=== PATIENT | female | born 1955 | race Caucasian/White ===

== ENCOUNTER 2016-10-18 17:04 | Inpatient (IN) | payer OTHER ==
[2016-10-18 18:08] VITALS: BMI 23.0
--- NOTE | 2016-10-18 19:29 | HP ---
CIWA Score - CIWA Score Nausea/Vomitin-Mild Nausea/No Vomiting Muscle Tremors: 4-Moderate,w/Arms Extend Anxiety: 4-Mod. Anxious/Guarded Agitation: 4-Moderately Restless Paroxysmal Sweats: 1-Minimal Palms Moist Orientation: 0-Oriented Tacttile Disturbances: 0-None Auditory Disturbances: 0-None Visual Disturbances: 0-None Headache: 2-Mild CIWA-Ar Total Score: 16 Admission ROS BHS - HPI Chief Complaint: withdrawal sx Allergies/Adverse Reactions: Allergies Allergy/AdvReac Type Severity Reaction Status Date / Time No Known Allergies Allergy Verified 10/18/16 19:57 History of Present Illness: 61 years old female with long history of alcohol dependence has diabetes ii depression neuropathy gerd, patient has in family began to heavy alcohol drinking 7 months ago admitted to detox Exam Limitations: No Limitations - Ebola screening Have you traveled outside of the country in the last 21 days: No (N) Have you had contact with anyone from an Ebola affected area: No Have you been sick,other than usual withdrawal symptoms: No Do you have a fever: No - Review of Systems Constitutional: Chills, Loss of Appetite, Changes in sleep, Unintentional Wgt. Loss EENT: reports: No Symptoms Reported Respiratory: reports: No Symptoms reported Cardiac: reports: Palpitations GI: reports: Nausea, Poor Appetite, Poor Fluid Intake, Indigestion, Abdominal cramping : reports: No Symptoms Reported Musculoskeletal: reports: Muscle Pain Integumentary: reports: Other (right 5th toe) Neuro: reports: Tremors Endocrine: reports: No Symptoms Reported Hematology: reports: No Symptoms Reported Psychiatric: reports: Judgement Intact, Orientated x3, Depressed Other Systems: Reviewed and Negative Patient History - Patient Medical History Hx Anemia: No Hx Asthma: No Hx Chronic Obstructive Pulmonary Disease (COPD): No Hx Cancer: No Hx Cardiac Disorders: No Hx Congestive Heart Failure: No Hx Hypertension: No Hx Hypercholesterolemia: No Hx Pacemaker: No HX Cerebrovascular Accident: No Hx Seizures: No Hx Dementia: No Hx Diabetes: Yes Hx Gastrointestinal Disorders: Yes (GERD) Hx Liver Disease: No Hx Genitourinary Disorders: No Hx Sexually Transmitted Disorders: No Hx Renal Disease (ESRD): No Hx Thyroid Disease: No Hx Human Immunodeficiency Virus (HIV): No Hx Hepatitis C: No Hx Depression: Yes Hx Suicide Attempt: No Hx Bipolar Disorder: No Hx Schizophrenia: No - Patient Surgical History Past Surgical History: Yes Hx Neurologic Surgery: No Hx Cataract Extraction: No Hx Cardiac Surgery: No Hx Lung Surgery: No Hx Breast Surgery: No Hx Breast Biopsy: No Hx Abdominal Surgery: No Hx Appendectomy: No Hx Cholecystectomy: No Hx Genitourinary Surgery: No Hx Section: No Hx Orthopedic Surgery: No Hx Hysterectomy: No Other Surgical History: Throat surgery (do not remember the name) Anesthesia Reaction: No - PPD History Previous Implant?: Yes Documented Results: Negative w/proof Implanted On Prior [facility] Admission?: Yes Date: 07/28/16 Results: 0mm PPD to be Administered?: No - Reproductive History Last Menstrual Period: 09/27/85 - Smoking Cessation Smoking history: Never smoked Have you smoked in the past 12 months: No Hx Chewing Tobacco Use: No Initiated information on smoking cessation: No - Substance & Tx. History Hx Alcohol Use: Yes Hx Substance Use: No Substance Use Type: Alcohol Hx Substance Use Treatment: Yes - Substances Abused Alcohol Route: Oral Frequency: Daily Amount used: 40 oz x 5 beer + pint volka Age of first use: 59 Date of Last Use: 10/18/16 Family Disease History - Family Disease History Family History: Denies Admission Physical Exam BHS - Vital Signs Vital Signs: Vital Signs - 24 hr 10/18/16 18:06 Temperature 97.3 F L Pulse Rate 103 H Respiratory 18 Rate Blood Pressure 112/70 - Physical General Appearance: Yes: Appropriately Dressed, Moderate Distress, Alcohol on Breath, Thin, Tremorous, Irritable, Sweating, Anxious HEENTM: Yes: Hearing grossly Normal, Normal ENT Inspection, Normocephalic, Normal Voice Respiratory: Yes: Chest Non-Tender, Lungs Clear, Normal Breath Sounds, No Respiratory Distress, No Accessory Muscle Use Neck: Yes: Supple, Trachea in good position Breast: Yes: Breasts Symetrical Cardiology: Yes: Regular Rhythm, S1, S2, Tachycardia Abdominal: Yes: Non Tender, Soft Genitourinary: Yes: Within Normal Limits Back: Yes: Normal Inspection Musculoskeletal: Yes: full range of Motion, Gait Steady Extremities: Yes: Normal Inspection, Normal Range of Motion, Non-Tender, Tremors Neurological: Yes: Alert, Motor Strength 5/5, Normal Response, Numbness ( diabetes neuropathy), Depressed Affect Integumentary: Yes: Warm, Moist Lymphatic: Yes: Within Normal Limits - Diagnostic (1) Acid reflux Current Visit: Yes Status: Acute Qualifiers: Esophagitis presence: without esophagitis (2) Alcohol dependence with uncomplicated withdrawal Current Visit: Yes Status: Acute (3) Diabetes mellitus type II, controlled Current Visit: Yes Status: Acute Qualifiers: Diabetes mellitus complication status: with neurologic complications Diabetes mellitus complication detail: with other neurological complication Diabetes mellitus extermination supervisor insulin use: without prison use Qualified Code(s): E11.49 - Type 2 diabetes mellitus with other diabetic neurological complication (4) Weight loss Current Visit: Yes Status: Acute (5) Depression (emotion) Current Visit: Yes Status: Suspected Qualifiers: Depression Type: dysthymia Qualified Code(s): F34.1 - Dysthymic disorder Cleared for Admission S - Detox or Rehab [facility] Level of Care: Medically Managed Detox Regimen/Protocol: Librium [facility] Breath Alcohol Content Breath Alcohol Content: 0.022 Urine Pregancy Test - Result Urine Test Results: Negative- NO Line Present Urine Drug Screen - Results Drug Screen Negative: Yes
[2016-10-18] MEDS ORDERED: MAG HYDROX/AL HYDROX/SIMETH 30 ML UNIT-DOSE CUP PO PRN (19:30)
[2016-10-18] MEDS ORDERED: guaiFENesin/D-METHORPHAN HB 10 ML UNIT-DOSE CUPS PO PRN (19:30)
[2016-10-18] MEDS ORDERED: chlordiazePOXIDE HCL 25 MG CAPSULE PO ONE (19:30)
[2016-10-18] MEDS ORDERED: ACETAMINOPHEN 325 MG TABLET (FP) PO PRN (19:30)
[2016-10-18] MEDS ORDERED: MAGNESIUM CITRATE 300 ML BOTTLE PO PRN (19:30)
[2016-10-18] MEDS ORDERED: LOPERAMIDE HCL 2 MG CAPSULE PO PRN (19:30)
[2016-10-18] MEDS ORDERED: diphenhydrAMINE HCL 50 MG CAPSULE PO PRN (19:30)
[2016-10-18] MEDS ORDERED: P-EPHED 60MG/TRIPROLIDI 2.5MG TABLET PO PRN (19:30)
[2016-10-18] MEDS ORDERED: MENTHOL/PHENOL 1 EACH UD MM PRN (19:30)
[2016-10-18] MEDS ORDERED: IBUPROFEN 400 MG TABLET (FP) PO PRN (19:30)
[2016-10-18] MEDS ORDERED: hydrOXYzine PAMOATE 50 MG CAPSULE (FP) PO PRN (19:30)
[2016-10-18] MEDS ORDERED: MAGNESIUM HYDROX 2400MG/30ML ORAL SUSPENSION 30 ML CUP PO PRN (19:30)
[2016-10-18] MEDS: chlordiazePOXIDE HCL 25 MG CAPSULE PO PRN (20:28)
[2016-10-18] MEDS: chlordiazePOXIDE HCL 25 MG CAPSULE PO SCH (22:18)
[2016-10-18] MEDS: GABAPENTIN 300 MG CAPSULE (FP) PO SCH (22:18)
[2016-10-18] MEDS: THIAMINE HCL 100 MG TABLET (FP) PO SCH (22:18)
[2016-10-18] MEDS: RANITIDINE HCL 150 MG TABLET (FP) PO SCH (22:18)
[2016-10-18 22:32] LABS: URINE APPEARANCE CLEAR; URINE BILIRUBIN NEGATIVE (NEGATIVE); URINE BLOOD NEGATIVE (NEGATIVE); URINE COLOR STRAW; URINE GLUCOSE (UA) 3+ (NEGATIVE); URINE KETONE NEGATIVE (NEGATIVE); URINE LEUK ESTERASE NEGATIVE (NEGATIVE); URINE NITRITE NEGATIVE (NEGATIVE); URINE PROTEIN NEGATIVE (NEGATIVE); URINE UROBILINOGEN NEGATIVE E.U./dl (0.2-1.0)
[2016-10-19] MEDS: GABAPENTIN 300 MG CAPSULE (FP) PO SCH (05:15)
[2016-10-19] MEDS: chlordiazePOXIDE HCL 25 MG CAPSULE PO SCH ×4 (05:15→22:16)
--- NOTE | 2016-10-19 09:51 | CONSULT ---
[facility] Psychiatric Consult - Data Date of interview: 10/19/16 Admission source: [facility] Identifying data: This is 61 years old male with history of psychiatric hospitalization intoxicated with Alcohol and Nicotine, history of MDD as well Substance Abuse History: - Smoking Cessation. Smoking history: Never smoked. Have you smoked in the past 12 months: No. Hx Chewing Tobacco Use: No. Initiated information on smoking cessation: No. - Substance & Tx. History. Hx Alcohol Use: Yes. Hx Substance Use: No. Substance Use Type: Alcohol. Hx Substance Use Treatment: Yes. - Substances Abused. Alcohol. Route: Oral. Frequency: Daily. Amount used: 40 oz x 5 beer + pint volka. Age of first use: 59. Date of Last Use: 10/18/16 Medical History: Patient reports GERD, DM-2, Weight loss, Hyperlipidemia Psychiatric History: Patient reprots histoey of MDD, reports currently taking: Trazodone 50mg po qhs. Gabapentine 100mg po bid. Patient reports most recent psychiatric admission on 2015 at [facility] [place] after depressive episode. Physical/Sexual Abuse/Trauma History: Denies Additional Comment: Trazodone 50mg po qhs. Gabapentine 100mg po bid Mental Status Exam - Mental Status Exam Alert and Oriented to: Person Cognitive Function: Fair Patient Appearance: Unkempt Mood: Sad Affect: Flat Patient Behavior: Sedated Speech Pattern: Delayed Voice Loudness: Mildly Soft/Quiet Thought Process: Circumstantial Thought Disorder: Being Controlled Hallucinations: Denies Suicidal Ideation: Denies Homicidal Ideation: Denies Insight/Judgement: Fair Sleep: Difficulty falling asleep Appetite: Weight loss Muscle strength/Tone: Mild Hypotonicity Gait/Station: Shuffling Additional Comments: Trazodone 50mg po qhs. Gabapentine 100mg po bid Psychiatric Findings - Problem List ([place] 1, 2,3) (1) Alcohol dependence with uncomplicated withdrawal Current Visit: Yes Status: Acute (2) MDD (recurrent major depressive disorder) in remission Current Visit: Yes Status: Acute (3) Depression (emotion) Current Visit: Yes Status: Suspected Qualifiers: Depression Type: dysthymia Qualified Code(s): F34.1 - Dysthymic disorder (4) Alcohol dependence Current Visit: No Status: Chronic (5) Steroid-induced depression Current Visit: Yes Status: Acute - Initial Treatment Plan Initial Treatment Plan: Trazodone 50mg po qhs. Gabapentine 100mg po bid
[2016-10-19] MEDS ORDERED: GABAPENTIN 100 MG CAPSULE (FP) PO SCH (10:00)
[2016-10-19] MEDS: RANITIDINE HCL 150 MG TABLET (FP) PO SCH (10:22)
[2016-10-19] MEDS: PRENATAL VITAMINS W/ FOLIC ACID TABLET (FP) PO SCH (10:22)
[2016-10-19] MEDS: chlordiazePOXIDE HCL 25 MG CAPSULE PO PRN (10:22)
[2016-10-19] MEDS: GABAPENTIN 100 MG CAPSULE (FP) PO SCH ×2 (10:25→22:16)
[2016-10-19] MEDS: metFORMIN HCL 500 MG TABLET (FP) PO SCH ×2 (10:26→17:17)
[2016-10-19 10:36] LABS: MCH 28.4 pg (25.7-33.7); MCHC 33.3 g/dl (32.0-36.0); MEAN CELL VOLUME 85.3 fl (80-96); MEAN PLT VOLUME 8.7 fl (7.5-11.1); PLATELET COUNT 207 K/MM3 (134-434); RDW 12.3 % (11.6-15.6); WHITE BLOOD COUNT 5.8 K/mm3 (4.0-10.0)
--- NOTE | 2016-10-19 10:58 | PN ---
S CIWA - CIWA Score Nausea/Vomitin-No Nausea/No Vomiting Muscle Tremors: 4-Moderate,w/Arms Extend Anxiety: 3 Agitation: 4-Moderately Restless Paroxysmal Sweats: 3 Orientation: 0-Oriented Tacttile Disturbances: 0-None Auditory Disturbances: 0-None Visual Disturbances: 0-None Headache: 0-None Present CIWA-Ar Total Score: 14 BHS Progress Note (SOAP) Subjective: sweats shakes interrupted sleep agitation Objective: 10/19/16 10:58 Vital Signs Temperature 96.8 F L 10/19/16 09:40 Pulse Rate 102 H 10/19/16 09:40 Respiratory Rate 18 10/19/16 09:40 Blood Pressure 105/66 10/19/16 09:40 O2 Sat by Pulse Oximetry (%) Laboratory Tests 10/18/16 10/19/16 10/19/16 22:00 06:19 07:00 WBC 5.8 D RBC 4.19 Hgb 11.9 D Hct 35.7 MCV 85.3 MCHC 33.3 RDW 12.3 Plt Count 207 MPV 8.7 Sodium Potassium Chloride POC Glucometer 160 Urine Color Straw Urine Appearance Clear Urine pH 5.0 Ur Specific [place] 1.010 Urine Protein Negative Urine Glucose (UA) 3+ H Urine Ketones Negative Urine Blood Negative Urine Nitrite Negative Urine Bilirubin Negative Urine Urobilinogen Negative Ur Leukocyte Esterase Negative 10/19/16 07:00 WBC RBC Hgb Hct MCV MCHC RDW Plt Count MPV Sodium 141 Potassium 4.5 Chloride 107 POC Glucometer Urine Color Urine Appearance Urine pH Ur Specific [place] Urine Protein Urine Glucose (UA) Urine Ketones Urine Blood Urine Nitrite Urine Bilirubin Urine Urobilinogen Ur Leukocyte Esterase awake/alert ambulating no acute distress Assessment: 10/19/16 10:59 withdrawal sx Plan: continue detox increase fluids labs pending diabetic diet ordered
[2016-10-19 11:14] LABS: ALBUMIN 3.7 g/dl (3.4-5.0); BILIRUBIN,TOTAL 0.3 mg/dL (0.2-1.0); CALCIUM 8.9 mg/dL (8.5-10.1); TOT PROT 6.6 g/dl (6.4-8.2)
--- NOTE | 2016-10-19 12:30 | EKG ---
Test Reason : Blood Pressure : / mmHG Vent. Rate : 100 BPM Atrial Rate : 100 BPM P-R Int : 142 ms QRS Dur : 064 ms QT Int : 326 ms P-R-T Axes : 030 025 044 degrees QTc Int : 420 ms NORMAL SINUS RHYTHM NONSPECIFIC ST AND T WAVE ABNORMALITY ABNORMAL ECG NO PREVIOUS ECGS AVAILABLE Confirmed by CM KING, REYES ([id number]) on 10/19/2016 12:29:51 PM Referred By: Confirmed By:REYES PABON MD
[2016-10-19] MEDS: traZODone HCL 50 MG TABLET (FP) PO SCH (22:16)
[2016-10-19] MEDS: THIAMINE HCL 100 MG TABLET (FP) PO SCH (22:16)
[2016-10-20] MEDS: chlordiazePOXIDE HCL 25 MG CAPSULE PO SCH ×3 (05:22→17:47)
[2016-10-20] MEDS: metFORMIN HCL 500 MG TABLET (FP) PO SCH ×2 (07:48→17:47)
[2016-10-20] MEDS: GABAPENTIN 100 MG CAPSULE (FP) PO SCH ×2 (10:09→22:14)
[2016-10-20] MEDS: PRENATAL VITAMINS W/ FOLIC ACID TABLET (FP) PO SCH (10:09)
[2016-10-20] MEDS: PANTOPRAZOLE 40 MG TABLET (FP) PO SCH (10:10)
--- NOTE | 2016-10-20 12:38 | PN ---
S CIWA - CIWA Score Nausea/Vomitin Muscle Tremors: 2 Anxiety: 2 Agitation: 2 Paroxysmal Sweats: 2 Orientation: 0-Oriented Tacttile Disturbances: 1-Very Mild Itch/Numbness Auditory Disturbances: 0-None Visual Disturbances: 0-None Headache: 0-None Present CIWA-Ar Total Score: 11 S Progress Note (SOAP) Subjective: FEELING BETTER Objective: 10/20/16 12:37 Vital Signs Temperature 97.5 F L 10/20/16 10:02 Pulse Rate 105 H 10/20/16 10:02 Respiratory Rate 16 10/20/16 10:02 Blood Pressure 112/74 10/20/16 10:02 O2 Sat by Pulse Oximetry (%) Laboratory Tests 10/18/16 10/19/16 10/19/16 22:00 06:19 07:00 WBC 5.8 D RBC 4.19 Hgb 11.9 D Hct 35.7 MCV 85.3 MCHC 33.3 RDW 12.3 Plt Count 207 MPV 8.7 Sodium Potassium Chloride Carbon Dioxide Anion Gap BUN Creatinine Creat Clearance w eGFR POC Glucometer 160 Random Glucose Calcium Total Bilirubin AST ALT Alkaline Phosphatase Total Protein Albumin Urine Color Straw Urine Appearance Clear Urine pH 5.0 Ur Specific [place] 1.010 Urine Protein Negative Urine Glucose (UA) 3+ H Urine Ketones Negative Urine Blood Negative Urine Nitrite Negative Urine Bilirubin Negative Urine Urobilinogen Negative Ur Leukocyte Esterase Negative RPR Titer 10/19/16 10/19/16 10/19/16 07:00 07:00 16:31 WBC RBC Hgb Hct MCV MCHC RDW Plt Count MPV Sodium 141 Potassium 4.5 Chloride 107 Carbon Dioxide 25 Anion Gap 9 BUN 19 H D Creatinine 1.0 Creat Clearance w eGFR 56.18 POC Glucometer 166 Random Glucose 174 H D Calcium 8.9 Total Bilirubin 0.3 AST 17 D ALT 21 D Alkaline Phosphatase 47 D Total Protein 6.6 Albumin 3.7 Urine Color Urine Appearance Urine pH Ur Specific [place] Urine Protein Urine Glucose (UA) Urine Ketones Urine Blood Urine Nitrite Urine Bilirubin Urine Urobilinogen Ur Leukocyte Esterase RPR Titer Nonreactive 10/20/16 05:23 WBC RBC Hgb Hct MCV MCHC RDW Plt Count MPV Sodium Potassium Chloride Carbon Dioxide Anion Gap BUN Creatinine Creat Clearance w eGFR POC Glucometer 172 Random Glucose Calcium Total Bilirubin AST ALT Alkaline Phosphatase Total Protein Albumin Urine Color Urine Appearance Urine pH Ur Specific [place] Urine Protein Urine Glucose (UA) Urine Ketones Urine Blood Urine Nitrite Urine Bilirubin Urine Urobilinogen Ur Leukocyte Esterase RPR Titer PT AOX3 IN NAD AMBULATING Assessment: 10/20/16 12:37 WITHDRAWL SX Plan: CONT. DETOX INCREASE FLUIDS
[2016-10-20] MEDS: chlordiazePOXIDE 5 MG CAPSULE PO SCH (22:14)
[2016-10-20] MEDS: THIAMINE HCL 100 MG TABLET (FP) PO SCH (22:14)
[2016-10-20] MEDS: traZODone HCL 50 MG TABLET (FP) PO SCH (22:14)
[2016-10-21] MEDS: chlordiazePOXIDE 5 MG CAPSULE PO SCH ×2 (05:59→10:17)
[2016-10-21] MEDS: metFORMIN HCL 500 MG TABLET (FP) PO SCH (06:52)
[2016-10-21] MEDS: GABAPENTIN 100 MG CAPSULE (FP) PO SCH (10:16)
[2016-10-21] MEDS: PANTOPRAZOLE 40 MG TABLET (FP) PO SCH (10:16)
[2016-10-21] MEDS: PRENATAL VITAMINS W/ FOLIC ACID TABLET (FP) PO SCH (10:16)
--- NOTE | 2016-10-21 10:40 | PN ---
BHS Progress Note (SOAP) Subjective: sweats groggy Objective: 10/21/16 10:37 Vital Signs Temperature 97.7 F 10/21/16 09:56 Pulse Rate 110 H 10/21/16 09:56 Respiratory Rate 18 10/21/16 09:56 Blood Pressure 94/65 10/21/16 09:56 O2 Sat by Pulse Oximetry (%) awake/alert ambulating no acute distress Assessment: 10/21/16 10:40 withdrawal sx Plan: continue detox increase fluids d/c in am
--- NOTE | 2016-10-21 13:26 | DS ---
[facility] Detox Discharge Summary Admission Date: 10/18/16 Discharge Date: 10/21/16 - History Present History: Alcohol Dependence - Physical Exam Results Vital Signs: Vital Signs Temperature 97.7 F 10/21/16 09:56 Pulse Rate 110 H 10/21/16 09:56 Respiratory Rate 18 10/21/16 09:56 Blood Pressure 94/65 10/21/16 09:56 O2 Sat by Pulse Oximetry (%) - Treatment Hospital Course: Detox Protocol Followed, Detoxed Safely, Responded well, Discharged Condition Good, Rehab Referral Accepted - Medication Discharge Medications: Ambulatory Orders Metformin HCl [Glucophage] 1,000 mg PO BID 04/27/12 Aspirin [ASA -] 81 mg PO DAILY 07/26/16 Hydroxyzine HCl [Atarax -] 25 mg PO BID PRN 07/26/16 Multivitamins [Tab-A-Vit -] 1 tab PO DAILY 07/26/16 Sitagliptin Phosphate [Januvia -] 100 mg PO DAILY #30 tablet 07/30/16 Gabapentin [Neurontin -] 100 mg PO BID #60 capsule 08/25/16 Trazodone HCl [Desyrel -] 50 mg PO HS #30 tablet 08/26/16 Gabapentin [Neurontin -] 100 mg PO BID #60 capsule 10/19/16 Trazodone HCl [Desyrel -] 50 mg PO HS #30 tablet 10/19/16 - Diagnosis (1) Acid reflux Current Visit: Yes Status: Chronic Qualifiers: Esophagitis presence: without esophagitis (2) Alcohol dependence with uncomplicated withdrawal Current Visit: Yes Status: Chronic (3) Diabetes mellitus type II, controlled Current Visit: Yes Status: Chronic Qualifiers: Diabetes mellitus complication status: without complication Diabetes mellitus buttermaker continuous churn insulin use: without buttermaker continuous churn use Qualified Code(s): E11.9 - Type 2 diabetes mellitus without complications (4) Weight loss Current Visit: Yes Status: Acute (5) Depression (emotion) Current Visit: Yes Status: Suspected Qualifiers: Depression Type: dysthymia Qualified Code(s): F34.1 - Dysthymic disorder - AMA Did Patient Leave Against Medical Advice: No (being p/u for [place] rehab for futher tx)
[2016-10-21 14:16] VITALS: BP 120/74; PULSE 105; TEMP 97.9
[2016-10-21] MEDS ORDERED: chlordiazePOXIDE HCL 10 MG CAPSULE PO SCH (23:00)
== END 2016-10-21 14:40 | disposition home or self-care (01) | DRG 775 ==
LOC: YASAS 17:04 → Y6N 19:57
PROVIDERS: ADMIT Internal Medicine Addiction Medicine; ATTEND Internal Medicine Addiction Medicine
PROC: HZ2ZZZZ Detoxification Services for Substance Abuse Treatment (ICD-10-PCS; principal; 2016-10-18)
DX: F10.230 Alcohol dependence with withdrawal, uncomplicated (principal); F34.1 Dysthymic disorder; F33.40 Major depressive disorder, recurrent, in remission, unspecified; K21.9 Gastro-esophageal reflux disease without esophagitis; E11.49 Type 2 diabetes mellitus with other diabetic neurological complication; G62.9 Polyneuropathy, unspecified; R00.0 Tachycardia, unspecified; Z87.898 Personal history of other specified conditions; Z59.0 Homelessness
CPT/HCPCS: 36415; 80053; 81003; 85027; 86593; 93005; 93010

== ENCOUNTER 2017-03-03 10:59 | Inpatient (IN) | payer OTHER ==
[2017-03-03 13:17] VITALS: BMI 23.2
--- NOTE | 2017-03-03 15:19 | HP ---
Admission ROS [facility] Chief Complaint: I was at [facility] detox for alcohol was released today and I am here for rehab. Allergies/Adverse Reactions: Allergies Allergy/AdvReac Type Severity Reaction Status Date / Time No Known Allergies Allergy Verified 03/03/17 15:10 History of Present Illness: pt is a 61yr old female with a history of alcohol of alcohol detox who was at [facility] for the past three days released today and here for rehab for further tx. pt was given a urine as protocol and the results came back positive. Pt was also given a BHCG blood test and result came back with a range of 44.7 which indicates that pt is 0.2-1 week . pt is a 61yr old female with a h /o hysterectomy since 1985. pt was advised that a pelvis/abdominal u/s will be done. Exam Limitations: No Limitations - Ebola screening Have you traveled outside of the country in the last 21 days: No Have you had contact with anyone from an Ebola affected area: No Have you been sick,other than usual withdrawal symptoms: No - Review of Systems Constitutional: No Symptoms Reported EENT: reports: No Symptoms Reported Respiratory: reports: No Symptoms reported Cardiac: reports: No Symptoms Reported GI: reports: No Symptoms Reported : reports: No Symptoms Reported Musculoskeletal: reports: No Symptoms Reported Integumentary: reports: No Symptoms Reported Neuro: reports: No Symptoms reported Endocrine: reports: No Symptoms Reported Hematology: reports: No Symptoms Reported Psychiatric: reports: Judgement Intact, Orientated x3, Agitated, Anxious Other Systems: Reviewed and Negative Patient History - Patient Medical History Hx Anemia: No Hx Asthma: No Hx Chronic Obstructive Pulmonary Disease (COPD): No Hx Cancer: No Hx Cardiac Disorders: No Hx Congestive Heart Failure: No Hx Hypertension: No Hx Hypercholesterolemia: No Hx Pacemaker: No HX Cerebrovascular Accident: No Hx Seizures: No Hx Dementia: No Hx Diabetes: Yes Hx Gastrointestinal Disorders: Yes (GERD) Hx Liver Disease: No Hx Genitourinary Disorders: No Hx Sexually Transmitted Disorders: No Hx Renal Disease (ESRD): No Hx Thyroid Disease: No Hx Human Immunodeficiency Virus (HIV): No Hx Hepatitis C: No Hx Depression: Yes Hx Suicide Attempt: No Hx Bipolar Disorder: No Hx Schizophrenia: No - Patient Surgical History Past Surgical History: Yes Hx Neurologic Surgery: No Hx Cataract Extraction: No Hx Cardiac Surgery: No Hx Lung Surgery: No Hx Breast Surgery: No Hx Breast Biopsy: No Hx Abdominal Surgery: Yes (total hysterectomy 1985) Hx Appendectomy: No Hx Cholecystectomy: No Hx Genitourinary Surgery: No Hx Section: No Hx Orthopedic Surgery: No Hx Hysterectomy: No Other Surgical History: Throat surgery (do not remember the name) Anesthesia Reaction: No - PPD History Previous Implant?: Yes Documented Results: Negative w/proof Date: 07/28/16 Results: 0mm PPD to be Administered?: No - Reproductive History Patient is a Female of Child Bearing Age (11 -55 yrs old): No Last Menstrual Period: 09/27/85 Patient : No - Smoking Cessation Smoking history: Never smoked Have you smoked in the past 12 months: No Hx Chewing Tobacco Use: No Initiated information on smoking cessation: No - Substance & Tx. History Hx Alcohol Use: Yes Substance Use Type: Alcohol Hx Substance Use Treatment: Yes ([place] [id number] d/c today 03/03/17) Family Disease History - Family Disease History Family History: Denies Admission Physical Exam S - Vital Signs Vital Signs: Vital Signs - 24 hr 03/03/17 13:14 Pulse Rate 97 H Respiratory 18 Rate Blood Pressure 97/88 - Physical General Appearance: Yes: Appropriately Dressed, Mild Distress, Tremorous, Irritable, Sweating, Anxious HEENTM: Yes: Normal ENT Inspection Respiratory: Yes: Lungs Clear, Normal Breath Sounds, No Respiratory Distress Neck: Yes: No masses,lesions,Nodules Breast: Yes: Within Normal Limits Cardiology: Yes: Regular Rhythm, Regular Rate, S1, S2 Abdominal: Yes: Normal Bowel Sounds, Non Tender, Soft Genitourinary: Yes: Within Normal Limits Back: Yes: Normal Inspection Musculoskeletal: Yes: full range of Motion Extremities: Yes: Normal Inspection, Tremors Neurological: Yes: Fully Oriented, Alert, Normal Response Integumentary: Yes: Normal Color, Diaphoresis Lymphatic: Yes: Within Normal Limits - Diagnostic (1) Acid reflux Current Visit: Yes Status: Chronic Qualifiers: Esophagitis presence: without esophagitis (2) Alcohol dependence with uncomplicated withdrawal Current Visit: Yes Status: Chronic (3) Diabetes mellitus type II, controlled Current Visit: Yes Status: Chronic Qualifiers: Diabetes mellitus complication status: without complication Diabetes mellitus half-way insulin use: without half-way use Qualified Code(s): E11.9 - Type 2 diabetes mellitus without complications Cleared for Admission [facility] - Detox or Rehab [facility] Level of Care: Medically Managed Claeared for Rehab Admission: Yes [facility] Breath Alcohol Content Breath Alcohol Content: 0 Urine Pregancy Test - Result Urine Test Results: Positive - Line Present Urine Drug Screen - Results Drug Screen Negative: No Urine Drug Screen Results: BZO-Benzodiazepines
[2017-03-03] MEDS ORDERED: MAGNESIUM CITRATE 300 ML BOTTLE PO PRN (15:34)
[2017-03-03] MEDS ORDERED: MENTHOL/PHENOL 1 EACH UD MM PRN (15:34)
[2017-03-03] MEDS ORDERED: MAGNESIUM HYDROX 2400MG/30ML ORAL SUSPENSION 30 ML CUP PO PRN (15:34)
[2017-03-03] MEDS ORDERED: MAG HYDROX/AL HYDROX/SIMETH 30 ML UNIT-DOSE CUP PO PRN (15:34)
[2017-03-03] MEDS ORDERED: P-EPHED 60MG/TRIPROLIDI 2.5MG TABLET PO PRN (15:34)
[2017-03-03] MEDS ORDERED: ACETAMINOPHEN 325 MG TABLET (FP) PO PRN (15:34)
[2017-03-03] MEDS ORDERED: guaiFENesin/D-METHORPHAN HB 10 ML UNIT-DOSE CUPS PO PRN (15:34)
[2017-03-03] MEDS ORDERED: hydrOXYzine PAMOATE 50 MG CAPSULE (FP) PO PRN (15:34)
[2017-03-03 17:04] LABS: MCH 27.7 pg (25.7-33.7); MCHC 32.5 g/dl (32.0-36.0); MEAN CELL VOLUME 85.2 fl (80-96); MEAN PLT VOLUME 9.7 fl (7.5-11.1); PLATELET COUNT 223 K/MM3 (134-434); RDW 12.1 % (11.6-15.6); WHITE BLOOD COUNT 6.6 K/mm3 (4.0-10.0)
[2017-03-03] MEDS: metFORMIN HCL 500 MG TABLET (FP) PO SCH (17:16)
[2017-03-03 17:24] LABS: ALK PHOS 59 U/L (45-117); ANION GAP 8 (8-16); BILIRUBIN,TOTAL 0.2 mg/dL (0.2-1.0); CALCIUM 10.1 mg/dL (8.5-10.1); CO2 31 mmol/L (21-32); COCKROFT - GAULT 55.2245; CREATININE 0.9 mg/dL (0.55-1.02); GLUCOSE,RANDOM 182 mg/dL (74-106); SGOT/AST 18 U/L (15-37); SGPT/ALT 16 U/L (12-78); TOT PROT 7.4 g/dl (6.4-8.2)
[2017-03-03] MEDS: diphenhydrAMINE HCL 50 MG CAPSULE PO PRN (21:06)
[2017-03-03] MEDS: GABAPENTIN 300 MG CAPSULE (FP) PO SCH (21:06)
[2017-03-03] MEDS: THIAMINE HCL 100 MG TABLET (FP) PO SCH (21:06)
[2017-03-03 22:57] LABS: URINE APPEARANCE CLEAR; URINE BILIRUBIN NEGATIVE (NEGATIVE); URINE BLOOD NEGATIVE (NEGATIVE); URINE COLOR YELLOW; URINE GLUCOSE (UA) 3+ (NEGATIVE); URINE KETONE NEGATIVE (NEGATIVE); URINE NITRITE NEGATIVE (NEGATIVE); URINE PROTEIN NEGATIVE (NEGATIVE); URINE UROBILINOGEN NEGATIVE E.U./dl (0.2-1.0)
[2017-03-03 23:09] LABS: URINE LEUK ESTERASE 1+ (NEGATIVE)
[2017-03-03 23:11] LABS: URINE BACTERIA RARE /hpf (NONE SEEN); URINE MUCUS RARE; URINE RBC 2 /hpf (0-3); URINE WBC 35 /hpf (3-5)
[2017-03-04] MEDS: metFORMIN HCL 500 MG TABLET (FP) PO SCH ×2 (07:17→16:58)
[2017-03-04] MEDS: GABAPENTIN 300 MG CAPSULE (FP) PO SCH ×2 (10:11→21:15)
[2017-03-04] MEDS: PRENATAL VITAMINS W/ FOLIC ACID TABLET (FP) PO SCH (10:11)
[2017-03-04 14:14] LABS: HIV 1 & 2 AB NEGATIVE; HIV 1 AGp24 NEGATIVE
--- NOTE | 2017-03-04 15:44 | EKG ---
Test Reason : Blood Pressure : / mmHG Vent. Rate : 090 BPM Atrial Rate : 090 BPM P-R Int : 144 ms QRS Dur : 068 ms QT Int : 346 ms P-R-T Axes : 025 021 031 degrees QTc Int : 423 ms NORMAL SINUS RHYTHM NORMAL ECG WHEN COMPARED WITH ECG OF 18-OCT-2016 20:42, NO SIGNIFICANT CHANGE WAS FOUND BASELINE ARTIFACT Confirmed by NOHEMI VALDEZ MD ([id number]) on 03/04/2017 3:43:31 PM Referred By: Confirmed By:NOHEMI VALDEZ MD
[2017-03-04] MEDS: THIAMINE HCL 100 MG TABLET (FP) PO SCH (21:15)
[2017-03-04] MEDS: diphenhydrAMINE HCL 50 MG CAPSULE PO PRN (21:15)
[2017-03-05] MEDS: metFORMIN HCL 500 MG TABLET (FP) PO SCH ×2 (07:03→16:50)
[2017-03-05] MEDS: GABAPENTIN 300 MG CAPSULE (FP) PO SCH ×2 (09:57→21:08)
[2017-03-05] MEDS: PRENATAL VITAMINS W/ FOLIC ACID TABLET (FP) PO SCH (09:57)
[2017-03-05] MEDS: THIAMINE HCL 100 MG TABLET (FP) PO SCH (21:08)
[2017-03-05] MEDS: diphenhydrAMINE HCL 50 MG CAPSULE PO PRN (21:08)
[2017-03-06] MEDS: metFORMIN HCL 500 MG TABLET (FP) PO SCH ×2 (06:23→16:46)
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
[2017-03-06] MEDS: GABAPENTIN 300 MG CAPSULE (FP) PO SCH ×2 (10:21→21:27)
[2017-03-06] MEDS: PRENATAL VITAMINS W/ FOLIC ACID TABLET (FP) PO SCH (10:21)
[2017-03-06] MEDS ORDERED: COLLOIDAL OATMEAL 1 BAR EACH TP PRN (11:57)
--- NOTE | 2017-03-06 12:18 | PN ---
S Progress Note Note: pelvis and abdominal sonogram showed mass 5.7x3.0 cm hypoechoic mass right renal upper pole renal vs adrenal mass ct of abdomen with and without contrast scheduled at [facility] on 03/07 17 at 0800 am patient is awared
[2017-03-06] MEDS: diphenhydrAMINE HCL 50 MG CAPSULE PO PRN (21:26)
[2017-03-06] MEDS: THIAMINE HCL 100 MG TABLET (FP) PO SCH (21:26)
[2017-03-07] MEDS: metFORMIN HCL 500 MG TABLET (FP) PO SCH (06:41)
[2017-03-07] MEDS: PRENATAL VITAMINS W/ FOLIC ACID TABLET (FP) PO SCH (11:00)
[2017-03-07] MEDS: GABAPENTIN 300 MG CAPSULE (FP) PO SCH ×2 (11:00→21:31)
[2017-03-07] MEDS: THIAMINE HCL 100 MG TABLET (FP) PO SCH (21:31)
[2017-03-07] MEDS: diphenhydrAMINE HCL 50 MG CAPSULE PO PRN (21:32)
[2017-03-08] MEDS: PRENATAL VITAMINS W/ FOLIC ACID TABLET (FP) PO SCH (09:53)
[2017-03-08] MEDS: GABAPENTIN 300 MG CAPSULE (FP) PO SCH ×2 (09:53→21:46)
[2017-03-08] MEDS: diphenhydrAMINE HCL 50 MG CAPSULE PO PRN (21:46)
[2017-03-08] MEDS: THIAMINE HCL 100 MG TABLET (FP) PO SCH (21:46)
[2017-03-09] MEDS: metFORMIN HCL 500 MG TABLET (FP) PO SCH ×2 (07:10→16:59)
[2017-03-09] MEDS: GABAPENTIN 300 MG CAPSULE (FP) PO SCH ×2 (09:37→21:31)
[2017-03-09] MEDS: PRENATAL VITAMINS W/ FOLIC ACID TABLET (FP) PO SCH (09:37)
[2017-03-09] MEDS: diphenhydrAMINE HCL 50 MG CAPSULE PO PRN (21:31)
[2017-03-09] MEDS: THIAMINE HCL 100 MG TABLET (FP) PO SCH (21:31)
[2017-03-10] MEDS: metFORMIN HCL 500 MG TABLET (FP) PO SCH ×2 (07:21→16:46)
[2017-03-10] MEDS: GABAPENTIN 300 MG CAPSULE (FP) PO SCH ×2 (09:46→21:43)
[2017-03-10] MEDS: PRENATAL VITAMINS W/ FOLIC ACID TABLET (FP) PO SCH (09:46)
[2017-03-10] MEDS: HYDROCORTISONE 1% TOPICAL CREAM 30 GM TUBE TP SCH ×2 (17:14→22:01)
[2017-03-10] MEDS: THIAMINE HCL 100 MG TABLET (FP) PO SCH (21:43)
[2017-03-10] MEDS: traZODone HCL 100 MG TABLET (FP) PO SCH (21:43)
[2017-03-11] MEDS: metFORMIN HCL 500 MG TABLET (FP) PO SCH ×2 (07:31→16:58)
[2017-03-11] MEDS: PRENATAL VITAMINS W/ FOLIC ACID TABLET (FP) PO SCH (10:28)
[2017-03-11] MEDS: HYDROCORTISONE 1% TOPICAL CREAM 30 GM TUBE TP SCH ×4 (10:28→21:53)
[2017-03-11] MEDS: GABAPENTIN 300 MG CAPSULE (FP) PO SCH ×2 (10:28→21:52)
[2017-03-11] MEDS: traZODone HCL 100 MG TABLET (FP) PO SCH (21:52)
[2017-03-11] MEDS: THIAMINE HCL 100 MG TABLET (FP) PO SCH (21:52)
[2017-03-11] MEDS: LOPERAMIDE HCL 2 MG CAPSULE PO PRN (23:30)
[2017-03-12] MEDS: metFORMIN HCL 500 MG TABLET (FP) PO SCH ×2 (07:04→16:54)
[2017-03-12] MEDS: PRENATAL VITAMINS W/ FOLIC ACID TABLET (FP) PO SCH (09:52)
[2017-03-12] MEDS: GABAPENTIN 300 MG CAPSULE (FP) PO SCH ×2 (09:52→21:32)
[2017-03-12] MEDS: HYDROCORTISONE 1% TOPICAL CREAM 30 GM TUBE TP SCH ×4 (09:53→21:33)
[2017-03-12] MEDS: traZODone HCL 100 MG TABLET (FP) PO SCH (21:32)
[2017-03-12] MEDS: THIAMINE HCL 100 MG TABLET (FP) PO SCH (21:32)
[2017-03-13] MEDS: LOPERAMIDE HCL 2 MG CAPSULE PO PRN (04:27)
[2017-03-13] MEDS: metFORMIN HCL 500 MG TABLET (FP) PO SCH ×2 (07:10→16:52)
[2017-03-13] MEDS: GABAPENTIN 300 MG CAPSULE (FP) PO SCH ×2 (10:01→21:53)
[2017-03-13] MEDS: PRENATAL VITAMINS W/ FOLIC ACID TABLET (FP) PO SCH (10:01)
[2017-03-13] MEDS: HYDROCORTISONE 1% TOPICAL CREAM 30 GM TUBE TP SCH ×4 (10:02→21:51)
[2017-03-13] MEDS: IBUPROFEN 400 MG TABLET (FP) PO PRN (12:24)
[2017-03-13] MEDS: THIAMINE HCL 100 MG TABLET (FP) PO SCH (21:52)
[2017-03-13] MEDS: traZODone HCL 100 MG TABLET (FP) PO SCH (21:52)
[2017-03-14] MEDS: LOPERAMIDE HCL 2 MG CAPSULE PO PRN (02:31)
[2017-03-14] MEDS: metFORMIN HCL 500 MG TABLET (FP) PO SCH ×2 (07:19→16:47)
[2017-03-14] MEDS: PRENATAL VITAMINS W/ FOLIC ACID TABLET (FP) PO SCH (10:00)
[2017-03-14] MEDS: GABAPENTIN 300 MG CAPSULE (FP) PO SCH ×2 (10:00→22:00)
[2017-03-14] MEDS: HYDROCORTISONE 1% TOPICAL CREAM 30 GM TUBE TP SCH ×4 (10:01→22:01)
[2017-03-14] MEDS: diphenhydrAMINE HCL 50 MG CAPSULE PO PRN (22:00)
[2017-03-14] MEDS: THIAMINE HCL 100 MG TABLET (FP) PO SCH (22:00)
[2017-03-14] MEDS: traZODone HCL 100 MG TABLET (FP) PO SCH (22:00)
[2017-03-15] MEDS: metFORMIN HCL 500 MG TABLET (FP) PO SCH ×2 (07:04→16:48)
[2017-03-15] MEDS: PRENATAL VITAMINS W/ FOLIC ACID TABLET (FP) PO SCH (09:55)
[2017-03-15] MEDS: HYDROCORTISONE 1% TOPICAL CREAM 30 GM TUBE TP SCH ×4 (09:55→21:35)
[2017-03-15] MEDS: GABAPENTIN 300 MG CAPSULE (FP) PO SCH ×2 (09:55→21:32)
[2017-03-15] MEDS: traZODone HCL 100 MG TABLET (FP) PO SCH (21:32)
[2017-03-15] MEDS: THIAMINE HCL 100 MG TABLET (FP) PO SCH (21:32)
[2017-03-15] MEDS: diphenhydrAMINE HCL 50 MG CAPSULE PO PRN (21:32)
[2017-03-15] MEDS: LOPERAMIDE HCL 2 MG CAPSULE PO PRN (21:33)
[2017-03-16] MEDS: metFORMIN HCL 500 MG TABLET (FP) PO SCH ×2 (06:31→17:07)
[2017-03-16] MEDS: GABAPENTIN 300 MG CAPSULE (FP) PO SCH ×2 (09:41→22:27)
[2017-03-16] MEDS: PRENATAL VITAMINS W/ FOLIC ACID TABLET (FP) PO SCH (09:41)
[2017-03-16] MEDS: HYDROCORTISONE 1% TOPICAL CREAM 30 GM TUBE TP SCH ×4 (09:42→22:43)
[2017-03-16] MEDS: THIAMINE HCL 100 MG TABLET (FP) PO SCH (22:27)
[2017-03-16] MEDS: traZODone HCL 100 MG TABLET (FP) PO SCH (22:27)
[2017-03-17] MEDS: metFORMIN HCL 500 MG TABLET (FP) PO SCH ×2 (06:48→16:59)
[2017-03-17] MEDS: PRENATAL VITAMINS W/ FOLIC ACID TABLET (FP) PO SCH (09:59)
[2017-03-17] MEDS: HYDROCORTISONE 1% TOPICAL CREAM 30 GM TUBE TP SCH ×4 (09:59→21:35)
[2017-03-17] MEDS: GABAPENTIN 300 MG CAPSULE (FP) PO SCH ×2 (10:00→21:34)
[2017-03-17] MEDS: THIAMINE HCL 100 MG TABLET (FP) PO SCH (21:34)
[2017-03-17] MEDS: traZODone HCL 100 MG TABLET (FP) PO SCH (21:34)
[2017-03-17] MEDS: diphenhydrAMINE HCL 50 MG CAPSULE PO PRN (21:34)
[2017-03-18] MEDS: metFORMIN HCL 500 MG TABLET (FP) PO SCH ×2 (07:04→16:51)
[2017-03-18] MEDS: GABAPENTIN 300 MG CAPSULE (FP) PO SCH ×2 (09:51→21:32)
[2017-03-18] MEDS: PRENATAL VITAMINS W/ FOLIC ACID TABLET (FP) PO SCH (09:51)
[2017-03-18] MEDS: HYDROCORTISONE 1% TOPICAL CREAM 30 GM TUBE TP SCH ×4 (09:51→21:32)
[2017-03-18] MEDS: THIAMINE HCL 100 MG TABLET (FP) PO SCH (21:31)
[2017-03-18] MEDS: traZODone HCL 100 MG TABLET (FP) PO SCH (21:32)
[2017-03-19] MEDS: metFORMIN HCL 500 MG TABLET (FP) PO SCH ×2 (07:10→17:00)
[2017-03-19] MEDS: PRENATAL VITAMINS W/ FOLIC ACID TABLET (FP) PO SCH (10:18)
[2017-03-19] MEDS: GABAPENTIN 300 MG CAPSULE (FP) PO SCH ×2 (10:18→21:54)
[2017-03-19] MEDS: HYDROCORTISONE 1% TOPICAL CREAM 30 GM TUBE TP SCH ×4 (10:19→21:55)
[2017-03-19] MEDS: THIAMINE HCL 100 MG TABLET (FP) PO SCH (21:54)
[2017-03-19] MEDS: traZODone HCL 100 MG TABLET (FP) PO SCH (21:54)
[2017-03-20] MEDS: metFORMIN HCL 500 MG TABLET (FP) PO SCH ×2 (07:20→16:49)
[2017-03-20] MEDS: PRENATAL VITAMINS W/ FOLIC ACID TABLET (FP) PO SCH (10:33)
[2017-03-20] MEDS: HYDROCORTISONE 1% TOPICAL CREAM 30 GM TUBE TP SCH ×4 (10:33→22:07)
[2017-03-20] MEDS: GABAPENTIN 300 MG CAPSULE (FP) PO SCH ×2 (10:33→21:26)
[2017-03-20] MEDS: THIAMINE HCL 100 MG TABLET (FP) PO SCH (21:26)
[2017-03-20] MEDS: diphenhydrAMINE HCL 50 MG CAPSULE PO PRN (21:26)
[2017-03-20] MEDS: traZODone HCL 100 MG TABLET (FP) PO SCH (21:26)
[2017-03-21] MEDS: metFORMIN HCL 500 MG TABLET (FP) PO SCH ×2 (06:30→17:30)
[2017-03-21] MEDS: GABAPENTIN 300 MG CAPSULE (FP) PO SCH ×2 (10:07→21:57)
[2017-03-21] MEDS: PRENATAL VITAMINS W/ FOLIC ACID TABLET (FP) PO SCH (10:07)
[2017-03-21] MEDS: HYDROCORTISONE 1% TOPICAL CREAM 30 GM TUBE TP SCH ×4 (10:07→21:58)
[2017-03-21] MEDS: traZODone HCL 100 MG TABLET (FP) PO SCH (21:57)
[2017-03-21] MEDS: THIAMINE HCL 100 MG TABLET (FP) PO SCH (21:58)
[2017-03-22] MEDS: metFORMIN HCL 500 MG TABLET (FP) PO SCH ×2 (07:04→16:45)
[2017-03-22] MEDS: GABAPENTIN 300 MG CAPSULE (FP) PO SCH ×2 (09:38→21:21)
[2017-03-22] MEDS: PRENATAL VITAMINS W/ FOLIC ACID TABLET (FP) PO SCH (09:38)
[2017-03-22] MEDS: HYDROCORTISONE 1% TOPICAL CREAM 30 GM TUBE TP SCH ×4 (09:39→21:59)
[2017-03-22] MEDS: diphenhydrAMINE HCL 50 MG CAPSULE PO PRN (21:21)
[2017-03-22] MEDS: traZODone HCL 100 MG TABLET (FP) PO SCH (21:21)
[2017-03-22] MEDS: THIAMINE HCL 100 MG TABLET (FP) PO SCH (21:21)
[2017-03-23] MEDS ORDERED: metFORMIN HCL 500 MG TABLET (FP) PO ONE (06:47)
[2017-03-23] MEDS: metFORMIN HCL 500 MG TABLET (FP) PO SCH ×2 (06:53→16:36)
[2017-03-23] MEDS: GABAPENTIN 300 MG CAPSULE (FP) PO SCH ×2 (09:51→21:29)
[2017-03-23] MEDS: PRENATAL VITAMINS W/ FOLIC ACID TABLET (FP) PO SCH (09:51)
[2017-03-23] MEDS: HYDROCORTISONE 1% TOPICAL CREAM 30 GM TUBE TP SCH ×4 (09:52→21:29)
[2017-03-23] MEDS: traZODone HCL 100 MG TABLET (FP) PO SCH (21:29)
[2017-03-23] MEDS: THIAMINE HCL 100 MG TABLET (FP) PO SCH (21:29)
[2017-03-24] MEDS: metFORMIN HCL 500 MG TABLET (FP) PO SCH ×2 (06:33→16:48)
[2017-03-24] MEDS: PRENATAL VITAMINS W/ FOLIC ACID TABLET (FP) PO SCH (09:51)
[2017-03-24] MEDS: HYDROCORTISONE 1% TOPICAL CREAM 30 GM TUBE TP SCH ×4 (09:51→21:07)
[2017-03-24] MEDS: GABAPENTIN 300 MG CAPSULE (FP) PO SCH ×2 (09:51→21:06)
[2017-03-24] MEDS: traZODone HCL 100 MG TABLET (FP) PO SCH (21:06)
[2017-03-24] MEDS: THIAMINE HCL 100 MG TABLET (FP) PO SCH (21:06)
[2017-03-25] MEDS: metFORMIN HCL 500 MG TABLET (FP) PO SCH ×2 (06:22→17:12)
[2017-03-25] MEDS: PRENATAL VITAMINS W/ FOLIC ACID TABLET (FP) PO SCH (09:57)
[2017-03-25] MEDS: GABAPENTIN 300 MG CAPSULE (FP) PO SCH ×2 (09:57→21:30)
[2017-03-25] MEDS: HYDROCORTISONE 1% TOPICAL CREAM 30 GM TUBE TP SCH ×4 (09:57→21:31)
[2017-03-25] MEDS: THIAMINE HCL 100 MG TABLET (FP) PO SCH (21:30)
[2017-03-25] MEDS: traZODone HCL 100 MG TABLET (FP) PO SCH (21:31)
[2017-03-26] MEDS: metFORMIN HCL 500 MG TABLET (FP) PO SCH ×2 (06:24→17:03)
[2017-03-26] MEDS: PRENATAL VITAMINS W/ FOLIC ACID TABLET (FP) PO SCH (10:01)
[2017-03-26] MEDS: HYDROCORTISONE 1% TOPICAL CREAM 30 GM TUBE TP SCH ×4 (10:01→21:51)
[2017-03-26] MEDS: GABAPENTIN 300 MG CAPSULE (FP) PO SCH ×2 (10:01→21:51)
[2017-03-26] MEDS: traZODone HCL 100 MG TABLET (FP) PO SCH (21:50)
[2017-03-26] MEDS: THIAMINE HCL 100 MG TABLET (FP) PO SCH (21:50)
[2017-03-27] MEDS: metFORMIN HCL 500 MG TABLET (FP) PO SCH ×2 (06:33→16:48)
[2017-03-27] MEDS: PRENATAL VITAMINS W/ FOLIC ACID TABLET (FP) PO SCH (10:24)
[2017-03-27] MEDS: GABAPENTIN 300 MG CAPSULE (FP) PO SCH ×2 (10:24→21:42)
[2017-03-27] MEDS: HYDROCORTISONE 1% TOPICAL CREAM 30 GM TUBE TP SCH ×4 (10:25→21:42)
[2017-03-27] MEDS: THIAMINE HCL 100 MG TABLET (FP) PO SCH (21:42)
[2017-03-27] MEDS: traZODone HCL 100 MG TABLET (FP) PO SCH (21:42)
[2017-03-27] MEDS: diphenhydrAMINE HCL 50 MG CAPSULE PO PRN (21:42)
[2017-03-28] MEDS: metFORMIN HCL 500 MG TABLET (FP) PO SCH ×2 (06:33→17:15)
[2017-03-28] MEDS: HYDROCORTISONE 1% TOPICAL CREAM 30 GM TUBE TP SCH ×4 (10:25→21:43)
[2017-03-28] MEDS: PRENATAL VITAMINS W/ FOLIC ACID TABLET (FP) PO SCH (10:25)
[2017-03-28] MEDS: GABAPENTIN 300 MG CAPSULE (FP) PO SCH ×2 (10:25→21:42)
[2017-03-28] MEDS: THIAMINE HCL 100 MG TABLET (FP) PO SCH (21:42)
[2017-03-28] MEDS: traZODone HCL 100 MG TABLET (FP) PO SCH (21:42)
[2017-03-29] MEDS: metFORMIN HCL 500 MG TABLET (FP) PO SCH ×2 (06:25→16:43)
[2017-03-29] MEDS: PRENATAL VITAMINS W/ FOLIC ACID TABLET (FP) PO SCH (10:05)
[2017-03-29] MEDS: GABAPENTIN 300 MG CAPSULE (FP) PO SCH ×2 (10:05→21:27)
[2017-03-29] MEDS: HYDROCORTISONE 1% TOPICAL CREAM 30 GM TUBE TP SCH ×4 (10:05→21:28)
[2017-03-29] MEDS: traZODone HCL 100 MG TABLET (FP) PO SCH (21:27)
[2017-03-29] MEDS: THIAMINE HCL 100 MG TABLET (FP) PO SCH (21:27)
[2017-03-30] MEDS: metFORMIN HCL 500 MG TABLET (FP) PO SCH ×2 (06:14→17:30)
[2017-03-30] MEDS: PRENATAL VITAMINS W/ FOLIC ACID TABLET (FP) PO SCH (10:15)
[2017-03-30] MEDS: GABAPENTIN 300 MG CAPSULE (FP) PO SCH ×2 (10:15→21:04)
[2017-03-30] MEDS: HYDROCORTISONE 1% TOPICAL CREAM 30 GM TUBE TP SCH ×4 (10:15→21:04)
[2017-03-30] MEDS: THIAMINE HCL 100 MG TABLET (FP) PO SCH (21:04)
[2017-03-30] MEDS: traZODone HCL 100 MG TABLET (FP) PO SCH (21:04)
[2017-03-31] MEDS: metFORMIN HCL 500 MG TABLET (FP) PO SCH ×2 (06:23→16:48)
[2017-03-31] MEDS ORDERED: GABAPENTIN 300 MG CAPSULE (FP) PO ONE (08:31)
[2017-03-31] MEDS: HYDROCORTISONE 1% TOPICAL CREAM 30 GM TUBE TP SCH ×4 (09:51→21:05)
[2017-03-31] MEDS: PRENATAL VITAMINS W/ FOLIC ACID TABLET (FP) PO SCH (09:51)
[2017-03-31] MEDS: IBUPROFEN 400 MG TABLET (FP) PO PRN (14:20)
[2017-03-31] MEDS: GABAPENTIN 300 MG CAPSULE (FP) PO SCH (21:04)
[2017-03-31] MEDS: traZODone HCL 100 MG TABLET (FP) PO SCH (21:04)
[2017-03-31] MEDS: THIAMINE HCL 100 MG TABLET (FP) PO SCH (21:05)
[2017-04-01] MEDS: GABAPENTIN 300 MG CAPSULE (FP) PO SCH ×2 (06:15→21:41)
[2017-04-01] MEDS: metFORMIN HCL 500 MG TABLET (FP) PO SCH ×2 (07:07→16:42)
[2017-04-01] MEDS: HYDROCORTISONE 1% TOPICAL CREAM 30 GM TUBE TP SCH ×4 (09:37→21:06)
[2017-04-01] MEDS: PRENATAL VITAMINS W/ FOLIC ACID TABLET (FP) PO SCH (09:37)
[2017-04-01] MEDS: traZODone HCL 100 MG TABLET (FP) PO SCH (21:06)
[2017-04-01] MEDS: THIAMINE HCL 100 MG TABLET (FP) PO SCH (21:06)
[2017-04-02] MEDS: diphenhydrAMINE HCL 50 MG CAPSULE PO PRN (01:20)
[2017-04-02] MEDS: GABAPENTIN 300 MG CAPSULE (FP) PO SCH ×2 (06:41→21:17)
[2017-04-02] MEDS: metFORMIN HCL 500 MG TABLET (FP) PO SCH ×2 (07:09→16:46)
[2017-04-02] MEDS: PRENATAL VITAMINS W/ FOLIC ACID TABLET (FP) PO SCH (09:39)
[2017-04-02] MEDS: IBUPROFEN 400 MG TABLET (FP) PO PRN ×2 (09:40→16:57)
[2017-04-02] MEDS: HYDROCORTISONE 1% TOPICAL CREAM 30 GM TUBE TP SCH ×4 (09:40→21:18)
[2017-04-02] MEDS: traZODone HCL 100 MG TABLET (FP) PO SCH (21:17)
[2017-04-02] MEDS: THIAMINE HCL 100 MG TABLET (FP) PO SCH (21:17)
[2017-04-03] MEDS: GABAPENTIN 300 MG CAPSULE (FP) PO SCH (06:44)
[2017-04-03] MEDS: metFORMIN HCL 500 MG TABLET (FP) PO SCH (06:44)
[2017-04-03 06:46] VITALS: BP 90/66; PULSE 105; TEMP 97.5
--- NOTE | 2017-04-03 07:41 | PN ---
Psychiatric Progress Note Vital Signs: Vital Signs Period Temp Pulse Resp BP Sys/Loza Pulse Ox Last 24 Hr 97.5 F 105 16-18 90/66 Date of Session: 04/03/17 Chief Complaint:: Discharge Note HPI: Patient addressing Alcohol Dependence comorbid with MDD, recurrent episode in full remision ROS: Type 2 DM, GERD were medically managed Current Medications: Active Medications Generic Name Dose Route Start Last Admin Trade Name Freq PRN Reason Stop Dose Admin Acetaminophen 650 mg 03/03/17 15:34 Tylenol - PO Q4H PRN PAIN Al Hydroxide/Mg Hydroxide 30 ml 03/03/17 15:34 03/11/17 20:02 Mylanta Oral Suspension - PO 30 ml Q6H PRN Administration DYSPEPSIA Colloidal Oatmeal 1 applic 03/06/17 11:57 Aveeno Soap - TP DAILY PRN HYGEINE Diphenhydramine HCl 50 mg 03/03/17 15:34 04/02/17 01:20 Benadryl - PO 50 mg HSMR1 PRN Administration INSOMNIA Eucalyptus/Menthol/Phenol/Sorbitol 1 each 03/03/17 15:34 Cepastat Lozenge - MM Q4H PRN SORE THROAT Gabapentin 300 mg 03/31/17 22:00 04/03/17 06:44 Neurontin - PO 300 mg BID@0600,2200 AUDI Administration Guaifenesin 10 ml 03/03/17 15:34 Robitussin Dm - PO Q6H PRN COUGH Hydrocortisone 1 applic 03/10/17 18:00 04/02/17 21:18 Hytone 1% Cream - TP 1 applic QID AUDI Administration Hydroxyzine Pamoate 50 mg 03/03/17 15:34 03/10/17 03:43 Vistaril - PO 50 mg Q4H PRN Administration AGITATION Ibuprofen 400 mg 03/03/17 15:34 04/02/17 16:57 Motrin - PO 400 mg Q6H PRN Administration SEVERE PAIN Loperamide HCl 4 mg 03/03/17 15:34 03/15/17 21:33 Imodium - PO 4 mg Q6H PRN Administration DIARRHEA Magnesium Citrate 300 ml 03/03/17 15:34 Citroma - PO Q48H PRN CONSTIPATION Magnesium Hydroxide 30 ml 03/03/17 15:34 06/13/17 13:27 Milk Of Magnesia - PO 30 ml DAILY PRN Administration CONSTIPATION Metformin HCl 1,000 mg 03/03/17 16:30 04/03/17 06:44 Glucophage - PO 1,000 mg BIDAC AUDI Administration Multivit/Folic Acid/Iron 1 tab 03/04/17 10:00 04/02/17 09:39 Vitamins ([facility]) - PO 1 tab DAILY AUDI Administration Pseudoephedrine/Triprolidine 1 combo 03/03/17 15:34 Actifed - PO TID PRN NASAL CONGESTION Thiamine HCl 100 mg 03/03/17 22:00 04/02/17 21:17 Vitamin B1 - PO Not Given HS AUDI Trazodone HCl 100 mg 03/10/17 22:00 04/02/17 21:17 Desyrel - PO 100 mg HS AUDI Administration Current Side Effect: No Lab tests ordered: Yes Lab tests reviewed: Yes Provider note:: Patient has completed this program today. She has met his treatment goals and will continue to address his issues in outpatient treatment at [facility]. Told card writer hand that from her participation in this program, she has learned the importance of attending her outpatient program and making meetings. She responded well to Trazadone 100 mg po HS. Script for that medication is electronically Transmitted to [facility] at [address] [place] [address]. She is stable for discharge today. Total face to face time:: 35 Mental Status Exam - Mental Status Exam Alert and Oriented to: Time, Place, Person Cognitive Function: Fair Patient Appearance: Well Groomed Mood: Hopeful, Euthymic Affect: Appropriate Patient Behavior: Cooperative Speech Pattern: Clear Voice Loudness: Normal Thought Process: Intact, Goal Oriented Thought Disorder: Not Present Hallucinations: Denies Suicidal Ideation: Denies Homicidal Ideation: Denies Insight/Judgement: Fair Sleep: Fair Appetite: Good Muscle strength/Tone: Normal Gait/Station: Normal Psychiatric Treatment Plan - Problem List (1) Alcohol dependence with uncomplicated withdrawal Current Visit: Yes (2) MDD (recurrent major depressive disorder) in remission Current Visit: No (3) Diabetes mellitus type II, controlled Current Visit: Yes Qualifiers: Diabetes mellitus complication status: without complication Diabetes mellitus senior living insulin use: without senior living use Qualified Code(s): E11.9 - Type 2 diabetes mellitus without complications (4) Depressive disorder Current Visit: Yes (5) GERD (gastroesophageal reflux disease) Current Visit: Yes Qualifiers: Esophagitis presence: without esophagitis Qualified Code(s): K21.9 - Gastro-esophageal reflux disease without esophagitis
[2017-04-03] MEDS: PRENATAL VITAMINS W/ FOLIC ACID TABLET (FP) PO SCH (09:48)
[2017-04-03] MEDS: HYDROCORTISONE 1% TOPICAL CREAM 30 GM TUBE TP SCH (09:49)
== END 2017-04-03 09:55 | disposition home or self-care (01) | DRG 772 ==
LOC: YASAS 10:59 → Y3W 15:57
PROVIDERS: ADMIT Psychiatry & Neurology Psychiatry; ATTEND Psychiatry & Neurology Psychiatry
PROC: HZ42ZZZ Group Counseling for Substance Abuse Treatment, Cognitive-Behavioral (ICD-10-PCS; principal; 2017-04-03)
DX: F10.230 Alcohol dependence with withdrawal, uncomplicated (principal); F32.89 Other specified depressive episodes; E11.9 Type 2 diabetes mellitus without complications; Z79.84 Long term (current) use of oral hypoglycemic drugs; K21.9 Gastro-esophageal reflux disease without esophagitis
CPT/HCPCS: 36415; 73070-TC-RT; 74170-TC; 76700-TC; 76856-TC; 80053; 81003; 81015; 84702; 85027; 86593; 87389; 93005; 93010; Q9967